=== PATIENT | male | born 1990 | race Caucasian/White ===

== ENCOUNTER 2017-05-29 12:46 | Emergency (ER) | payer OTHER ==
[2017-05-29] MEDS ORDERED: PANTOPRAZOLE 40MG INJ (PROTONIX) (C9113) IV (14:15)
[2017-05-29 14:56] LABS: BASO # 0.1 10^3/uL (0.0-0.2); BASO % 0.6 % (0.0-1.0); EOS # 0.2 10^3/uL (0.0-0.50); EOS % 1.9 % (0.0-3.0); HEMATOCRIT 44.3 % (42.0-52.0); HEMOGLOBIN 15.1 g/dl (14.0-18.0); IMMATURE GRANULOCYTE % 0.1 % (0-3.0); LYMPH # 1.8 10^3/uL (1.5-6.5); LYMPH % 22.7 % (24.0-44.0); MEAN CORPUSCULAR HEMOGLOBIN 29.6 pg (27.0-33.0); MEAN CORPUSCULAR HGB CONC 34.1 g/dl (32.0-36.5); MEAN CORPUSCULAR VOLUME 86.9 fl (80.0-96.0); MONO # 0.9 10^3/uL (0.0-0.8); MONO % 11.5 % (0.0-5.0); NEUTROPHILS % 63.2 % (36.0-66.0); PLATELET COUNT, AUTOMATED 253 10^3/uL (150-450); WHITE BLOOD COUNT 7.9 10^3/uL (4.0-10.0)
[2017-05-29 15:10] LABS: INR 1.04; PROTHROMBIN TIME 13.7 SECONDS (12.4-14.5)
[2017-05-29 15:19] LABS: ALBUMIN 4.2 GM/DL (3.2-5.2); ALKALINE PHOSPHATASE 64 U/L (45-117); ALT/SGPT 24 U/L (12-78); ANION GAP 6 MEQ/L (8-16); AST/SGOT 16 U/L (7-37); BILIRUBIN,DIRECT 0.1 MG/DL (0.0-0.2); BILIRUBIN,TOTAL 0.5 MG/DL (0.2-1.0); BLOOD UREA NITROGEN 11 MG/DL (7-18); CALCIUM LEVEL 8.9 MG/DL (8.5-10.1); CARBON DIOXIDE LEVEL 28 MEQ/L (21-32); CHLORIDE LEVEL 107 MEQ/L (98-107); CREATININE FOR GFR 0.86 MG/DL (0.70-1.30); GLOMERULAR FILTRATION RATE > 60.0 (>60); GLUCOSE, FASTING 85 MG/DL (70-100); MAGNESIUM LEVEL 2.2 MG/DL (1.8-2.4); POTASSIUM SERUM 4.2 MEQ/L (3.5-5.1); SODIUM LEVEL 141 MEQ/L (136-145); TOTAL PROTEIN 7.2 GM/DL (6.4-8.2)
[2017-05-29] MEDS: SUCRALFATE 1 GM TAB PO (15:41)
[2017-05-29] MEDS: PANTOPRAZOLE 40MG TAB (PROTONIX) PO (15:41)
== END 2017-05-29 16:38 | disposition home or self-care (01) ==
LOC: M ED 12:46
DX: K29.70 Gastritis, unspecified, without bleeding (principal); K22.6 Gastro-esophageal laceration-hemorrhage syndrome; K62.5 Hemorrhage of anus and rectum
CPT/HCPCS: 83735

== ENCOUNTER 2020-01-19 15:56 | Emergency (ER) | payer OTHER ==
[~2020-01-19] VITALS: Ht 182.9 cm; Wt 108.5 kg
[~2020-01-19 15:56] MED LIST: CARA1TAB6 PO; PROT1TAB2 PO
[2020-01-19 17:14] LABS: BASO % 0.5 % (0.0-1.0); EOS # 0.1 10^3/uL (0.0-0.5); EOS % 1.2 % (0.0-3.0); HEMATOCRIT 45.3 % (42.0-52.0); HEMOGLOBIN 14.6 g/dl (13.5-17.5); LYMPH # 1.5 10^3/uL (1.5-5.0); MEAN CORPUSCULAR HEMOGLOBIN 29.1 pg (27.0-33.0); MEAN CORPUSCULAR HGB CONC 32.2 g/dl (32.0-36.5); MEAN CORPUSCULAR VOLUME 90.4 fl (80.0-96.0); MONO # 0.7 10^3/uL (0.0-0.8); MONO % 8.8 % (0.0-5.0); NEUTROPHILS % 68.1 % (36.0-66.0); PLATELET COUNT, AUTOMATED 247 10^3/uL (150-450); RED BLOOD COUNT 5.01 10^6/uL (4.30-6.10); WHITE BLOOD COUNT 7.4 10^3/uL (4.0-10.0)
--- NOTE | 2020-01-19 17:27 | REPVR ---
PROCEDURE INFORMATION: Exam: CT Abdomen And Pelvis Without Contrast Exam date and time: 01/19/2020 5:03 PM Age: 29 years old Clinical indication: Other: Hematuria TECHNIQUE: Imaging protocol: Computed tomography of the abdomen and pelvis without contrast. Radiation optimization: All CT scans at this facility use at least one of these dose optimization techniques: automated exposure control; mA and/or kV adjustment per patient size (includes targeted exams where dose is matched to clinical indication); or iterative reconstruction. COMPARISON: No relevant prior studies available. FINDINGS: Liver: Unremarkable. No mass. Gallbladder and bile ducts: Normal. No calcified stones. No ductal dilation. Pancreas: Unremarkable. No ductal dilation. Spleen: Unremarkable. No splenomegaly. Adrenals: Normal. No mass. Kidneys and ureters: Unremarkable. No stones. No hydronephrosis. Stomach and bowel: Unremarkable. No obstruction. No mucosal thickening. Appendix: No evidence of appendicitis. Intraperitoneal space: No free air. No significant fluid collection. Vasculature: Unremarkable. No abdominal aortic aneurysm. Lymph nodes: No enlarged lymph nodes. Urinary bladder: Generalized wall thickening of the urinary bladder is likely secondary to under distention. Cystitis is not excluded. Reproductive: Unremarkable as visualized. Bones/joints: Mild degenerative spondylosis of the lower thoracic and lower lumbar spine. No fracture. Soft tissues: Unremarkable. IMPRESSION: 1. No renal stone or hydronephrosis. 2. Generalized wall thickening of the urinary bladder is likely secondary to under distention. Cystitis is not excluded. Electronically signed by: Freedom Seo On 01/19/2020 17:26:48 PM
[2020-01-19 17:55] VITALS: BP 143/85
== END 2020-01-19 17:56 | disposition home or self-care (01) ==
LOC: M ED 15:56
DX: R31.9 Hematuria, unspecified (principal); N30.90 Cystitis, unspecified without hematuria; Z79.899 Other long term (current) drug therapy

== ENCOUNTER → 2020-03-04 | Outpatient (REF) | payer OTHER | LOC: M SMT 16:45 | PROVIDERS: ATTEND Urology | DX: R31.0 Gross hematuria (principal) | CPT/HCPCS: 87086; 88108; G0463 ==

== ENCOUNTER → 2020-03-20 | Outpatient (CLI) | payer OTHER ==
[~2020-03-20] MED LIST changes: +ISOVUE-370 76% 100ML VIAL As Ordered ONE
--- NOTE | 2020-03-20 08:53 | REP ---
INDICATION: GROSS HEMATURIA. COMPARISON: Comparison CT study January 19, 2020.. TECHNIQUE: Contrast dose: 100 ML of Isovue [address] technique: Helical scanning is acquired and overlapping 1.5 mm and contiguous 3 mm axial images are reformatted. In addition, multiplanar re-formation images are generated in sagittal and coronal imaging projections. Dual phase post-contrast imaging is obtained. 3D surface rendered images are generated. CT urography technique. FINDINGS: Preliminary digital community development director radiograph is unremarkable. The lung bases are clear on axial CT images. The liver and the spleen are normal in size homogeneous in texture on pre and dual phase post contrast imaging. No abnormality is noted in the pancreas or the gallbladder. Normal adrenal glands are seen. The kidneys enhance symmetrically and are morphologically intact on pre and dual phase post-contrast imaging. No filling defect is seen in the collecting system and the ureters describe a normal course to the bladder on delayed phase imaging. There is no evidence of enhancing bladder mass or filling defect. No retroperitoneal mass or adenopathy is seen. Normal appendix is noted. Urinary bladder is unremarkable. Seminal vesicles and prostate gland show no significant abnormality. There is no evidence of pelvic mass or adenopathy. No abdominal wall defect is seen. Bone window settings show no significant bony abnormality. IMPRESSION: Unremarkable CT urography examination. No urinary tract abnormality. <Electronically signed by Jd Lyon > 03/20/20 [id number]
== END ==
LOC: M RAD 07:36
PROVIDERS: ATTEND Urology
DX: R31.0 Gross hematuria (principal)
CPT/HCPCS: 74178; Q9967

== ENCOUNTER → 2021-03-18 | Outpatient (REF) ==
[~2021-03-18] MED LIST changes: -ISOVUE-370 76% 100ML VIAL As Ordered ONE
--- NOTE | 2021-03-18 09:41 | REP ---
INDICATION: PAIN COMPARISON: None. TECHNIQUE: PA and lateral. FINDINGS: The mediastinum and cardiac silhouette are normal. The lung kulkarni are clear and without acute consolidation, effusion, or pneumothorax. The skeletal structures are intact and normal. IMPRESSION: No acute cardiopulmonary process. <Electronically signed by Néstor Copeland > 03/18/21 0937
--- NOTE | 2021-03-18 09:43 | REP ---
INDICATION: PAIN COMPARISON: None. TECHNIQUE: Four views of the right hemithorax. FINDINGS: Four views of the right hemithorax demonstrates no acute rib fracture/injury or pathology. IMPRESSION: Normal rib series. <Electronically signed by Néstor Copeland > 03/18/21 [id number]
--- NOTE | 2021-03-18 09:44 | REP ---
INDICATION: PAIN. COMPARISON: None. TECHNIQUE: Four views FINDINGS: No acute fracture or destructive osseous lesion. The mortise is intact. IMPRESSION: No acute abnormality <Electronically signed by Luther Olivares > 03/18/21 [id number]
--- NOTE | 2021-03-18 09:44 | REP ---
INDICATION: PAIN COMPARISON: None. TECHNIQUE: AP, lateral, bilateral oblique views right hand. FINDINGS: Old healed 5th metacarpal bone fracture. Remainder of the examination is age-appropriate and normal. No further acute or healed injury. No degenerative changes. IMPRESSION: Old healed 5th metacarpal bone fracture.. Otherwise normal examination. <Electronically signed by Néstor Copeland > 03/18/21 0948
== END ==
LOC: M PLAIMG 08:47
PROVIDERS: ATTEND Internal Medicine
DX: R07.9 Chest pain, unspecified (principal); M25.572 Pain in left ankle and joints of left foot; M79.641 Pain in right hand

== ENCOUNTER 2021-07-27 07:07 | Day surgery (SDC) | payer OTHER ==
[~2021-07-27] VITALS: Ht 182.9 cm; Wt 112.5 kg
[~2021-07-27 07:07] MED LIST changes: +DULO1CAP6 PO; +NS 1,000 ML IV ONE
[2021-07-27] MEDS ORDERED: fentaNYL 100 MCG/2 ML INJECTION As Ordered ONE (08:11)
[2021-07-27] MEDS ORDERED: propofoL 200 MG/20 ML VIAL As Ordered ONE (08:20)
[2021-07-27] MEDS ORDERED: LIDOCAINE 2% INJ 100 MG/5 ML SYRINGE As Ordered ONE (08:32)
[2021-07-27] MEDS ORDERED: propofoL 500 MG/50 ML VIAL As Ordered ONE (08:32)
[2021-07-27 09:08] VITALS: BP 118/60
== END 2021-07-27 09:10 | disposition home or self-care (01) ==
LOC: M OPP 07:07
PROVIDERS: ATTEND Internal Medicine Gastroenterology
DX: K62.5 Hemorrhage of anus and rectum (principal); D50.9 Iron deficiency anemia, unspecified; K31.89 Other diseases of stomach and duodenum; K29.70 Gastritis, unspecified, without bleeding; Z79.899 Other long term (current) drug therapy; F17.220 Nicotine dependence, chewing tobacco, uncomplicated
CPT/HCPCS: 43239; 45378; 88305; 88312; J3010